=== PATIENT | male | born 1990 | race Caucasian/White ===

== ENCOUNTER 2021-06-25 09:45 | Emergency (ER) | payer OTHER ==
[~2021-06-25] VITALS: Ht 170.2 cm; Wt 75.0 kg
[2021-06-25 10:06] LABS: COVID AG,FIA SOURCE NASAL SWAB
[2021-06-25 12:00] VITALS: BP 150/66
[2021-06-25] MEDS ORDERED: ONDANSETRON HCL 4 MG TABLET PO ONE (12:30)
[2021-06-25] MEDS ORDERED: ONDA-104 PO (13:13)
== END 2021-06-25 13:45 | disposition home or self-care (01) ==
LOC: EMS 09:45
DX: R11.2 Nausea with vomiting, unspecified (principal); M79.18 Myalgia, other site; Z20.822 Contact with and (suspected) exposure to COVID-19; F17.220 Nicotine dependence, chewing tobacco, uncomplicated
CPT/HCPCS: 87426; 99283; C9803; Q0162; U0003

== ENCOUNTER 2021-08-01 09:20 | Emergency (ER) | payer OTHER ==
[~2021-08-01] VITALS: Ht 170.2 cm; Wt 72.7 kg
[~2021-08-01 09:20] MED LIST: ONDA-104 PO
[2021-08-01] MEDS ORDERED: DEXAMETHASONE SOD PHOS 4 MG/ML 5 ML VIAL IM ONE (10:15)
[2021-08-01] MEDS ORDERED: HydrOXYzine PAMOATE 50 MG CAPSULE PO ONE (10:15)
[2021-08-01] MEDS ORDERED: IBUPROFEN 600 MG TABLET PO ONE (10:15)
[2021-08-01 10:30] VITALS: BP 112/76
[2021-08-01 10:45] LABS: COVID AG,FIA SOURCE NASOPHARYNGEAL
[2021-08-01] MEDS ORDERED: BENZ-70 PO (11:31)
[2021-08-01] MEDS ORDERED: HYDR-4808 PO (11:31)
== END 2021-08-01 11:51 | disposition home or self-care (01) ==
LOC: EMS 09:23
DX: J06.9 Acute upper respiratory infection, unspecified (principal); F41.9 Anxiety disorder, unspecified; B97.89 Other viral agents as the cause of diseases classified elsewhere; Z20.822 Contact with and (suspected) exposure to COVID-19
CPT/HCPCS: 71045; 87426; 87430; 96372; 99284; J1100